=== PATIENT | female | born 1965 | race Caucasian/White ===

== ENCOUNTER 2022-11-26 14:34 | Outpatient (CLI) | payer MEDICAID, SELFPAY ==
--- NOTE | 2022-11-26 14:47 | MM_ITS ---
WS: [id number] BILATERAL 3D TOMOSYNTHESIS DIGITAL SCREENING MAMMOGRAPHY WITH CAD CLINICAL INFORMATION: SCREENING HISTORY: Screening mammogram. No current complaints. COMPARISON: None. TECHNIQUE: Bilateral CC and MLO views. FINDINGS: The breasts are composed of heterogeneous fibroglandular density tissue, which can limit the detectio n of small underlying mass lesions. No suspicious mass, asymmetry, calcifications, or architectural d istortion. No evidence of malignancy. Punctate and lucent centered calcifications. MM/[place] [id number] IMPRESSION: BI-RADS: 2-Benign FOLLOW UP: 1 Year Follow-up Recommend return to annual screening mammography.
== END 2022-11-26 14:35 | disposition home or self-care (01) ==
LOC: RAD 14:36
PROVIDERS: PCP Family Medicine; Visit Provider Family Medicine
DX: Z12.31 Encounter for screening mammogram for malignant neoplasm of breast (principal)
CPT/HCPCS: 77063; 77067

== ENCOUNTER → 2022-12-03 13:46 | Outpatient (BNVA) | payer MEDICAID, SELFPAY | PROVIDERS: PCP Family Medicine; Referring Provider Family Medicine; Visit Provider Orthopaedic Surgery | DX: M25.562 Pain in left knee (principal) | CPT/HCPCS: 73560; 73565 ==

== ENCOUNTER 2023-05-07 15:21 | Outpatient (CLI) | payer MEDICAID, SELFPAY ==
--- NOTE | 2023-05-07 | XRR_ITS ---
PROCEDURE INFORMATION: Exam: XR Left Shoulder Exam date and time: 05/07/2023 3:58 PM Age: 58 years old Clinical indication: Pain; Shoulder; Left; Additional info: Pain in left shoulder TECHNIQUE: Imaging protocol: Radiologic exam of the left shoulder. Views: 2 or more views. COMPARISON: No relevant prior studies available. FINDINGS: Bones/joints: Normal. Soft tissues: Normal. XR/XR shoulder LT min 2V* [id number] IMPRESSION: No acute findings.
== END 2023-05-07 15:22 | disposition home or self-care (01) ==
PROVIDERS: PCP Family Medicine; Visit Provider Family Medicine
DX: M25.512 Pain in left shoulder (principal)
CPT/HCPCS: 73030

== ENCOUNTER 2023-05-22 13:45 | Outpatient (CLI) | payer MEDICAID, SELFPAY ==
--- NOTE | 2023-05-22 13:54 | MR_ITS ---
WS: [id number] MRI LEFT SHOULDER HISTORY: PAIN IN LEFT SHOULDER COMPARISON: Shoulder radiograph 05/07/2023 TECHNIQUE: Multiplanar sequences of the shoulder joint are submitted. Mild AC joint arthritis. AC joint is narrowed. Small hypertrophic AC osteophytes. There is a small co mplex fluid collection in the subacromial bursa. There may be a few small loose bodies within this co llection. Additional smaller subdeltoid bursal distention. Mild subacromial impingement. Normal appea lupillo of the biceps tendon. No os acromion. Very small insertion site tear of the supraspinatus tendon. There is additional mild tendinopathy. Th ere is no atrophy or fatty replacement of the rotator cuff muscles. Mild increased T2 signal in the c oracohumeral ligament. Normal glenohumeral joint space narrowing. No labral tear. IMPRESSION: 1. Very small subacromial bursitis with tiny loose bodies. 2. Small insertion site tear supraspinatus tendon with additional mild tendinopathy. 3. Mild AC joint arthritis. 4. Mild subacromial impingement. 5. Mild increased T2 signal in the coracohumeral ligament.
== END 2023-05-22 13:46 | disposition home or self-care (01) ==
PROVIDERS: PCP Family Medicine; Visit Provider Family Medicine
DX: M25.512 Pain in left shoulder (principal); M75.52 Bursitis of left shoulder; S46.912A Strain of unspecified muscle, fascia and tendon at shoulder and upper arm level, left arm, initial encounter; X58.XXXA Exposure to other specified factors, initial encounter; M19.012 Primary osteoarthritis, left shoulder; M25.812 Other specified joint disorders, left shoulder
CPT/HCPCS: 73221

== ENCOUNTER → 2023-06-24 13:36 | Outpatient (BNVA) | payer MEDICAID, SELFPAY | PROVIDERS: PCP Family Medicine; Referring Provider Family Medicine; Visit Provider Specialist | DX: M75.82 Other shoulder lesions, left shoulder | CPT/HCPCS: 73030 ==

== ENCOUNTER 2023-07-28 14:35 | Outpatient (CLI) | payer MEDICAID, SELFPAY ==
--- NOTE | 2023-07-28 14:40 | US_ITS ---
WS: [id number] US transvaginal [id number] HISTORY: Postmenopausal vaginal bleeding COMPARISON: None available. Uterus: 8.6 cm x 5.7 cm x 5.0 cm. Uterus is normal size but very heterogeneous. Lobulated contour of the uterus with areas of decreased echogenicity consistent with fibroid uterus. Fibroids are ill-defined and difficult to measure. The largest measure approximately 1.3 x 1.3 cm along the anterior myometrium. There is also a probable fi broid abutting the posterior endometrium measuring 1.1 x 1.0 cm. Endometrium: 1.1 cm. Abnormal endometrium. There is a distended endometrial canal with low-level echo es. There is no increased vascularity but this is an abnormal endometrium and neoplasm needs to be ex cluded. This may be complex material such as blood or mucus distending the endometrial canal. Neither ovary is identified. No adnexal mass No free fluid in the cul-de-sac. IMPRESSION: 1. Abnormal endometrium. Endometrium is thickened and heterogeneous. Although there is no increased v ascularity the endometrium needs to be evaluated for possible neoplasm. Additional etiologies to cons ider are blood and mucus products. EXECUTIVE SOUS CHEF evaluation and biopsy is recommended. 2. Fibroid uterus. 3. Neither ovary identified.
== END 2023-07-28 14:36 | disposition home or self-care (01) ==
PROVIDERS: PCP Family Medicine; Visit Provider Family Medicine
DX: N95.0 Postmenopausal bleeding (principal); R93.89 Abnormal findings on diagnostic imaging of other specified body structures; D25.9 Leiomyoma of uterus, unspecified
CPT/HCPCS: 76830

== ENCOUNTER → 2023-08-13 15:18 | Outpatient (BNVA) | payer MEDICAID, SELFPAY | PROVIDERS: PCP Family Medicine; Referring Provider Family Medicine; Visit Provider Nurse Practitioner Women's Health | DX: R93.89 Abnormal findings on diagnostic imaging of other specified body structures (principal) | CPT/HCPCS: 87624; 88305 ==

== ENCOUNTER 2023-09-24 10:58 | Day surgery (SDC) | payer MEDICAID, SELFPAY ==
[2023-09-24] VITALS (9 sets, daily range): BP systolic 132–150; BP diastolic 71–99; PULSE 56–80; RESP 14–20; TEMP 36.4–37.1; O2SAT 93–98
--- NOTE | 2023-09-24 00:01 | P.HP_ITS ---
Same Day Surgery H&P Indication for Procedure/HPI DATE OF PROCEDURE: September 24, 2023 CHIEF COMPLAINT/INDICATIONFOR SURGICAL PROCEDURE: postmenopausal bleeding PREOP DIAGNOSIS: postmenopausal bleeding PLANNED PROCEDURE: Operation Date: 09/24/23 12:40 Proposed Procedures p Hysteroscopy, endometrial sampling, possible endometrial polypectomy 46478,N9 5.0(Not Applicable) - Osmany Pineda MD s Poylpectomy(Not Applicable) - Osmany Pineda MD 58 y.o. no bleeding x 9 years began bleeding in June, has continued to bleed now scheduled for hysteroscopy, endometrial sampling, possible endometrial polypectomy Medications/Allergies* Home Medications Medication Instructions Recorded Confirmed Type estradiol 0.05 mg/24 hr semiweekly See Rx Instructions .Route .COMPLEX 09/23/23 09/23/23 History transdermal patch lurasidone 40 mg tablet (Latuda) 40 mg PO DAILY 09/23/23 09/23/23 History meloxicam 15 mg tablet 15 mg PO DAILY 09/23/23 09/23/23 History omeprazole 20 mg tablet,delayed 20 mg PO DAILY 09/23/23 09/23/23 History release progesterone micronized 100 mg 100 mg PO DAILY 09/23/23 09/23/23 History capsule quetiapine 25 mg tablet 25 mg PO BEDTIME 09/23/23 09/23/23 History Allergies/Adverse Reactions Allergy/AdvReac Type Severity Reaction Status Date / Time No Known Allergies Allergy Verified 09/07/23 10:20 Pertinent History/Comorbid Conditions* Family History (Updated 08/13/23 @ 08:18 by June Saini CMA) Denies family history of Colon cancer Ovarian cancer Diabetes Heart disease Breast cancer Hypertension Uterine cancer Thyroid disease Stroke Pertinent Exam Findings alert, oriented x 3, clear to auscultation bilaterally and regular rate & rhythm Pertinent Data Pap 08-13-23 NILM, negative HPV pelvic sono 07-28-23 uterus heterogeneous with fibroids endometrium 1.1 cm ovaries not seen Recommendations Surgery/Procedure today Coding Level of Care Code Acute Code for Chg Fwd Time Spent (min) 20
[2023-09-24] MEDS: sodium chloride 0.9% 1,000 ML 30 ML IV (11:23)
[2023-09-24] MEDS: scopolamine 1.5 Patch 1 PATCH TRANSDERMA (11:38)
[2023-09-24] MEDS: midazolam 1 mg/mL INJ 2 mL 2 MG IVP (11:39)
--- NOTE | 2023-09-24 12:05 | ANES.PREANE2 ---
Pre-Anesthetic Assessment Height/Weight: Height 1.63 m Weight 76.657 kg Temp Pulse Resp BP Pulse Ox O2 Del Method 97.5 F L 80 16 149/99 96 Room Air 09/24/23 11:01 09/24/23 11:01 09/24/23 11:01 09/24/23 11:01 09/24/23 11:01 09/24/23 11:14 Preop Diagnosis: postmenopausal bleeding Operation Date: 09/24/23 12:40 Proposed Procedures p Hysteroscopy, endometrial sampling, possible endometrial polypectomy 84998,N95.0(Not Applicable) - Osmany Pineda MD s Poylpectomy(Not Applicable) - Osmany Pineda MD Familial anesthetic complications: None Was Beta Zoey taken within 24 hours: N/A Was Clonidine taken within 24 hours: N/A Last intake: Intake Last Liquid Date 09/23/23 Last Liquid Time 23:30 Last Solid Date 09/23/23 Last Solid Time 21:00 Social Tobacco and No alcohol Exam alert, oriented x 3, clear to auscultation bilaterally and regular rate & rhythm Airway Mallampati: Class II Dentition: full GI Gastroesophageal Reflux Disease Anesthetic Plan ASA status: 2 Anesthesia: MAC Risk of > 500 ml blood loss (7ml/kg in children): No Medications/Allergies Home Medications Medication Instructions Recorded Confirmed Last Taken Type estradiol 0.05 mg/24 hr semiweekly See Rx Instructions .Route .COMPLEX 09/23/23 09/23/23 09/23/23 History transdermal patch lurasidone 40 mg tablet (Latuda) 40 mg PO DAILY 09/23/23 09/23/23 09/23/23 History omeprazole 20 mg tablet,delayed 20 mg PO DAILY 09/23/23 09/23/23 09/23/23 History release progesterone micronized 100 mg 100 mg PO DAILY 09/23/23 09/23/23 09/23/23 History capsule quetiapine 25 mg tablet 25 mg PO BEDTIME 09/23/23 09/23/23 09/23/23 History Allergies Allergy/AdvReac Type Severity Reaction Status Date / Time No Known Allergies Allergy Verified 09/24/23 11:05 Current Medications Generic Name Dose Route Start Last Admin Trade Name Freq PRN Reason Stop Dose Admin Sodium Chloride 1,000 mls @ 30 mls/hr 09/24/23 11:15 09/24/23 11:23 Sodium Chloride 0.9% IV 09/25/23 11:14 30 mls/hr .Q24H DESIREE Administration Midazolam HCl 2 mg 09/24/23 11:01 09/24/23 11:39 Midazolam 1 Mg/Ml Inj 2 Ml IVP 2 mg Q5M PRN Administration Preop Anxiety PFSH Anesthesia Family History Denies family history of Colon cancer Ovarian cancer Diabetes Heart disease Breast cancer Hypertension Uterine cancer Thyroid disease Stroke Data Anesthesia Cardiac Studies: No Data to Display
--- NOTE | 2023-09-24 12:48 | W.PM.OPSUD ---
Surgery/Procedure H&P Update DATE OF PROCEDURE: September 24, 2023 DATE H&P PERFORMED: 09/23/23 H&P UPDATE INFORMATION: I have reviewed H&P completed within last 30 days, I have examined patient prior to procedure and No changes to prior documentation PREOP DIAGNOSIS: postmenopausal bleeding PLANNED PROCEDURE: Operation Date: 09/24/23 12:40 Proposed Procedures p Hysteroscopy, endometrial sampling, possible endometrial polypectomy 12417,N95.0(Not Applicable) - Osmany Pineda MD s Poylpectomy(Not Applicable) - Osmany Pineda MD
[2023-09-24] MEDS: fentaNYL 50 mcg/mL INJ 2mL IVP ×2 (13:54→14:03)
--- NOTE | 2023-09-24 14:10 | PM.OP ---
Operative Report Date of procedure: September 24, 2023 Pre-op diagnosis: abnormal uterine bleeding Post-op diagnosis: same Post-op findings: normal endometrial cavity No polyps / fibroids Minimal endometrial tissue Procedure done: hysteroscopy Curettage of uterus Implants: none Specimens removed/disposition: endometrial curettings Surgeon: Osmany Pineda MD Anesthesia: MAC Estimated blood loss (mL): 0 Complications: none Condition: stable Brief History: 58 y.o. with postmenopausal bleeding Procedure: Informed consent signed. Patient was taken to the operating room. Anesthesia was induced. Patient was placed in dorsolithotomy position, prepped and draped for hysteroscopy. A bivalve speculum was placed in the vagina. The anterior lip of the cervix was grasped with a sharp-toothed tenaculum. The cervix was serially dilated with Hegar dilators. . A hysteroscope was placed into the endometrial cavity. The endometrial cavity was seen to be normal. There were no polyps or fibroids. There was a minimal amount of endometrial tissue. The hysteroscope was then removed. Endometrial curettage was done with a sharp curette. Endometrial tissue was sent to pathology. The sharp-toothed tenaculum was removed. There was no bleeding from the endometrial cavity or cervix. The patient was then placed supine and awakened and taken to the PACU. Postop condition: stable EBL: none Sponge and instruments counts were normal x 2 Complications: none
--- NOTE | 2023-09-24 14:55 | ANE.PACU2 ---
Inpatient post-anesthesia follow up: Airway intact: Yes Vital signs: Temperature 98.7 F Pulse Rate 65 Respiratory Rate 16 Blood Pressure 135/73 Pulse Oximetry 94 Oxygen Delivery Me thod Room Air Oxygen Flow Rate Fraction of Inspir ed Oxygen Hydration adequate: Yes Nausea and vomiting: No Pain level: 1 Mental status: Baseline
== END 2023-09-24 14:53 | disposition home or self-care (01) ==
PROVIDERS: PCP Family Medicine; Visit Provider Obstetrics & Gynecology
PROC: 0UJD8ZZ Inspection of Uterus and Cervix, Via Natural or Artificial Opening Endoscopic (ICD-10-PCS; CPT 58555; principal; 2023-09-24 12:30)
DX: N93.9 Abnormal uterine and vaginal bleeding, unspecified (principal); K21.9 Gastro-esophageal reflux disease without esophagitis
CPT/HCPCS: 58558; 88305; J2250; J2405; J2704; J3010; J7030

== ENCOUNTER 2024-02-11 11:49 | Outpatient (CLI) | payer MEDICAID, SELFPAY ==
--- NOTE | 2024-02-11 11:51 | CT_ITS ---
WS: [id number] LDCT LUNG CANCER SCREENING TECHNIQUE: Noncontrast CT of the chest with coronal and sagittal reformatted images. CLINICAL INFORMATION: NICOTINE DEPENDENCE,CIGARETTES COMPARISON: None. DLP: 53.11 mGy.cm DIvol: Mean CTDIvol: 1.20 (mGy) All CT scans at [facility] use at least one of these dose optimization techniques: automat ed exposure control; mA and/or kV adjustment per patient size (includes targeted exams where dose is matched to clinical indication); or iterative reconstruction. FINDINGS: Lungs are well aerated. No acute pulmonary infiltrates. Pleural-based nodule RIGHT middle l obe measuring 6 mm.Tiny nodule in the lingula. Tiny subpleural nodule LEFT upper lobe. Small LEFT low er lobe nodule adjacent to the diaphragm measuring 5 mm Normal caliber thoracic aorta. Mild aortic calcification. No mediastinal or hilar lymphadenopathy. No axillary lymphadenopathy. Adrenal glands are normal. Normal noncontrast spleen. Small esophageal hernia. Mild thoracic kyphosis . CT/CT lung screening [id number] IMPRESSION: LUNG-RADS: 2-Benign Appearance or Behavior FOLLOW UP: 12 Month: Continue annual screening with LDCT
== END 2024-02-11 11:50 | disposition home or self-care (01) ==
LOC: RAD 11:49
PROVIDERS: PCP Family Medicine; Visit Provider Family Medicine
DX: Z12.2 Encounter for screening for malignant neoplasm of respiratory organs (principal)
CPT/HCPCS: 71271

== ENCOUNTER 2025-01-16 14:11 | Outpatient (CLI) | payer MEDICAID, SELFPAY ==
--- NOTE | 2025-01-16 14:20 | XR_ITS ---
WS: [id number] Exam: XR chest 2V* [id number] Date/Time of Exam: 01/16/2025 2:20 PM Reason For Exam: DYSPNEA Comparison CT lung screening 02/11/2024. Lungs are clear and fully inflated. Normal cardiomediastinal silhouette. No pleural effusions. Mild DJD of the T-spine and increased kyphosis. XR/XR chest 2V* [id number] IMPRESSION: 1. Negative chest.
== END 2025-01-16 14:12 | disposition home or self-care (01) ==
LOC: RAD 14:14
PROVIDERS: PCP Family Medicine; Visit Provider Family Medicine
DX: R06.09 Other forms of dyspnea (principal); M47.894 Other spondylosis, thoracic region; M40.294 Other kyphosis, thoracic region
CPT/HCPCS: 71046

== ENCOUNTER → 2025-02-01 07:53 | Day surgery (SDC) | payer MEDICAID, SELFPAY ==
[2025-02-01] MEDS: sodium chloride 0.9% 1,000 ML 30 ML IV (08:23)
[2025-02-01 08:24] VITALS: BP 110/77; PULSE 85; RESP 18; TEMP 36.3; O2SAT 99
--- NOTE | 2025-02-01 08:33 | ECG_ITS ---
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 Measurements Intervals [place] Rate: 71 P: 34 IA: 163 QRS: 34 QRSD: 84 T: 1 QT: 393 QTc: 428 Interpretive Statements SINUS RHYTHM MODERATE T-WAVE ABNORMALITY, CONSIDER ANTERIOR ISCHEMIA [-0.1+ mV T-WAVE IN V3/V4] No previous ECG available for comparison Electronically Signed On 02-01-2025 23:35:03 CDT by Carlos Mckeon M.D. [email or web address] [id number]
--- NOTE | 2025-02-01 08:36 | ANES.PREANE2 ---
Pre-Anesthetic Assessment Height/Weight: Height 5 ft 4 in Weight 174 lb Temp Pulse Resp BP Pulse Ox O2 Del Method 97.4 F L 85 18 110/77 99 Room Air 02/01/25 08:24 02/01/25 08:24 02/01/25 08:24 02/01/25 08:24 02/01/25 08:24 02/01/25 08:24 Preop Diagnosis: Hemorrhoids Operation Date: 02/01/25 09:20 Proposed Procedures p Rectum Exam Under Anesthesia 61495 59270 60270 K64.9(Not Applicable) - Carlos Manuel Fitch MD s POSSIBLE Hemorrhoid Banding(Not Applicable) - Carlos Manuel Fitch MD s POSSIBLE Hemorrhoidectomy(Not Applicable) - Carlos Manuel Fitch MD Was Beta Zoey taken within 24 hours: N/A Was Clonidine taken within 24 hours: N/A Last intake: Intake Last Liquid Date 02/01/25 Last Liquid Time 00:30 Last Solid Date 01/31/25 Last Solid Time 23:00 Social Tobacco and No alcohol Smokes marijuana as well Exam alert, oriented x 3 and regular rate & rhythm Decreased breath sounds bilaterally Airway Submandibular: within normal limits Cervical ROM: within normal limits Mallampati: Class II Dentition: full Anesthetic Plan ASA status: 2 Anesthesia: General Other: Patient states that she is slow to wake up from anesthesia NPO since yesterday evening History of GERD, controlled with omeprazole Patient states that she has been in the process of working up shortness of breath, exertion when she is doing any activity. States that she gets very short of breath when goes up a flight of stairs. States that they have done a chest x-ray that did not show anything. They are planning on doing a CT scan of her. Patient denies any cardiac issues. No lower extremity swelling. Denies any chest pain. Patient does smoke at least a half a pack of cigarettes a day and smokes even more marijuana daily. We will obtain an EKG prior to procedure Plan for general anesthesia Medications/Allergies Home Medications ?Medication ?Instructions ?Recorded ?Confirmed ?Last Taken ?Type lurasidone 40 mg tablet (Latuda) 40 mg PO DAILY 09/23/23 01/31/25 01/31/25 History omeprazole 20 mg tablet,delayed 20 mg PO DAILY 12/27/23 05/06/25 05/06/25 History release quetiapine 25 mg tablet 25 mg PO BEDTIME 09/23/23 01/31/25 01/31/25 History Allergies Allergy/AdvReac Type Severity Reaction Status Date / Time No Known Allergies Allergy Verified 01/31/25 14:12 Current Medications Generic Name Dose Route Start Last Admin Trade Name Michaelq PRN Reason Stop Dose Admin Sodium Chloride 1,000 mls @ 30 mls/hr 02/01/25 08:00 02/01/25 08:23 Sodium Chloride 0.9% IV 02/02/25 07:59 30 mls/hr .Q24H DESIREE Administration PFSH Anesthesia Family History Denies family history of Colon cancer Ovarian cancer Diabetes Heart disease Breast cancer Hypertension Uterine cancer Thyroid disease Stroke Social History (Updated 01/16/25 @ 13:[address]) Smoking and tobacco/nicotine status: current every day tobacco/nicotine user cigarettes Alcohol intake: current
--- NOTE | 2025-02-01 08:54 | PM.MISC ---
Miscellaneous Note Note: Patient complaining of SOB. Anesthesia reviewed EKG. Need cardiology workup prior to surgery. Will reschedule. Referring patient to cardiology
--- NOTE | 2025-02-01 08:57 | SUR.PREOP ---
Anesthesia requested EKG due to recent history of shortness of breath. Following EKG, anesthesia and surgeon decided pt needed cardiology consult. Case cancelled.
== END ==
PROVIDERS: PCP Family Medicine; Visit Provider Student in an Organized Health Care Education/Training Program
PROC: (CPT 46221; 2025-02-01 09:20)
DX: Z53.8 Procedure and treatment not carried out for other reasons (principal); R06.02 Shortness of breath
CPT/HCPCS: 93005; J2250; J2704; J3010; J7030

== ENCOUNTER 2025-02-03 19:22 | Emergency (ER) | payer MEDICAID, SELFPAY ==
--- NOTE | 2025-02-03 19:23 | XRR_ITS ---
PROCEDURE INFORMATION: Exam: XR Chest Exam date and time: 02/03/2025 7:35 PM Age: 60 years old Clinical indication: Chest pressure; Chest pain; SOB x 2 weeks TECHNIQUE: Imaging protocol: Radiologic exam of the chest. Views: 1 view. COMPARISON: CR XR chest 2V* [id number] 01/16/2025 2:24 PM FINDINGS: Lungs: Unremarkable. No consolidation. Pleural spaces: Unremarkable. No pleural effusion. No pneumothorax. Heart/Mediastinum: Unremarkable. No cardiomegaly. Bones/joints: Unremarkable. XR/XR chest 1V portable [id number] IMPRESSION: No acute findings.
--- NOTE | 2025-02-03 19:26 | ECG_ITS ---
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1965 Requested By: Gio Vernon Order Number: [id number] Reading MD: NEHAL DAN Measurements Intervals [place] Rate: 101 P: 68 [place]: 146 QRS: 88 QRSD: 82 T: 0 QT: 324 QTc: 420 Interpretive Statements SINUS TACHYCARDIA NONSPECIFIC T-WAVE ABNORMALITY ABNORMAL RHYTHM ECG Compared to ECG 02/01/2025 08:42:31 Sinus rhythm no longer present Possible ischemia no longer present T-wave abnormality still present Electronically Signed On 02-04-2025 16:20:40 CDT by NEHAL DAN [email or web address] [id number]
[2025-02-03 19:27] VITALS: BP 144/82; PULSE 102; RESP 16; TEMP 36.8; O2SAT 99; BMI 29.5
[2025-02-03 19:30] VITALS: BP 124/76; PULSE 79; RESP 17; O2SAT 97
[2025-02-03 19:35] LABS: Basophils # 0.1 10^3/uL (0.0-0.1); Eosinophils # 0.6 10^3/uL (0.0-0.8); Hematocrit 34.8 % (36-47); Lymphocytes # 3.1 10^3/uL (0.8-4.8); Lymphocytes % 26.8 %; Mean Corpuscular HGB Conc 30.2 g/dL (30-55); Mean Corpuscular Hemoglobin 25.1 pg (27-33); Mean Corpuscular Volume 83.3 fl (85-98); Mean Platelet Volume 8.8 fL (7.4-10.4); Monocytes # 0.8 10^3/uL (0.2-0.9); Monocytes % 6.8 %; Neutrophils # 6.92 10^3/uL (1.8-7.7); Neutrophils % 60.1 %; Nucleated Red Blood Cells % 0 %; Platelet Count 458 10^3/cmm (157-399); Red Blood Count 4.18 10^6/uL (3.85-5.65); Red Cell Distribution Width 13.9 % (12.1-15.1); White Blood Count 11.55 10^3/uL (3.29-11.43)
--- NOTE | 2025-02-03 19:35 | CTR_ITS ---
PROCEDURE INFORMATION: Exam: CTA Chest With Contrast Exam date and time: 02/03/2025 7:59 PM Age: 60 years old Clinical indication: Shortness of breath; Chest pressure; C/O chest pain that started earlier today. Also says she has been having SOB for the last few weeks. ; Additional info: Cp TECHNIQUE: Imaging protocol: Computed tomographic angiography of the chest with contrast. Exam focused on the arteries. 3D rendering (Not supervised by radiologist): MIP and/or 3D reconstructed images were created by the technologist. Radiation optimization: All CT scans at this facility use at least one of these dose optimization techniques: automated exposure control; mA and/or kV adjustment per patient size (includes targeted exams where dose is matched to clinical indication); or iterative reconstruction. Contrast material: OMNI 350; Contrast volume: 56 ml; Contrast route: INTRAVENOUS (IV); COMPARISON: CT lung screening [id number] 02/11/2024 12:02 PM RADIATION DOSE METRICS: Total DLP (mGy-cm): 348.88 FINDINGS: Pulmonary arteries: Normal. No pulmonary emboli. Aorta: Unremarkable. No aortic aneurysm. No aortic dissection. Lungs: Stable appearance of a couple of nodules noted in the left lung base measuring up to 5 mm in size. No consolidation. Pleural spaces: Unremarkable. No pneumothorax. No pleural effusion. Heart: Unremarkable. No cardiomegaly. No pericardial effusion. Lymph nodes: Unremarkable. No enlarged lymph nodes. Bones/joints: Unremarkable. No acute fracture. Soft tissues: Unremarkable. CT/CT angio chest PE protcl [id number] IMPRESSION: No acute findings.
--- NOTE | 2025-02-03 19:36 | ED_ITS ---
HPI - Chest Pain 2 General: Chief Complaint: Chest Pain Stated Complaint: CP Sob Time Seen by Provider: 02/03/25 19:32 Source: patient Mode of arrival: ambulatory Limitations: no limitations History of Present Illness: 60-year-old female states that throughou t the day today she has had intermittent very sharp chest pains states it started this morning at 8 AM states the random lasts for seconds and then resolve denies any pain currently states she also has had some shortness of breath over the last 2 weeks she denies any pain or dyspnea currently she denies any fever. Associated symptoms: Deny abdominal pain, dyspnea, fever(s), nausea or vomiting Related Data Home Medications ?Medication ?Instructions ?Recorded ?Confirmed lurasidone 40 mg tablet (Latuda) 40 mg PO DAILY 01/31/25 omeprazole 20 mg tablet,delayed 20 mg PO DAILY 3 01/31/25 release quetiapine 25 mg tablet 25 mg PO BEDTIME 09/23/23 Allergies Allergy/AdvReac Type Severity Reaction Status Date / Time No Known Allergies Allergy Verified 01/31/25 14:12 Review of Systems 2 Const: Denies: fever(s), chills, body aches or change in appetite ENMT: Denies: throat pain or dental pain Card: Reports: chest pain Resp: Denies: dyspnea GI: Denies: abdominal pain, nausea, vomiting or diarrhea Musc: Denies: neck pain or back pain Skin/Breast: Denies: rash Neuro: Denies: headache(s) PFSH ED 2 PFSH: Family History Denies family history of Colon cancer Ovarian cancer Diabetes Heart disease Breast cancer Hypertension Uterine cancer Thyroid disease Stroke Social History (Updated 01/16/25 @ 13:53 by ADRIANA Hickman) Smoking and tobacco/nicotine status: current every day tobacco/nicotine user cigarettes Alcohol intake: current Physical Exam 2 Const: COMMON NORMALS: patient oriented x3 HENMT: COMMON NORMALS: normocephalic and atraumatic HEAD & SCALP: n ormocephalic and atraumatic Eye: COMMON NORMALS: conjunctivae normal CONJUNCTIVA: Yes conjunctivae normal Neck/C-Spine: COMMON NORMALS: full ROM and supple Chest: COMMONS NORMALS: normal inspection of the chest and normal palpation of entire chest wall Resp: COMMON NORMALS: normal respiratory effort, No retractions, No use of accessory muscles and clear to auscultation bilaterally AUSCULTATION: clear to auscultation bilaterally Cardio: COMMON NORMALS: regular rate, regular rhythm and No murmurs present (Cardio) RATE: regular rate RHYTHM: regular rhythm Extremity: COMMON NORMALS: normal to inspection and full ROM Neuro: COMMON NORMALS: patient oriented x3, moves all extremities and no focal motor deficits Psych: COMMON NORMALS: mental status grossly normal, Normal thought process present and cooperative THOUGHT PROCESS: Normal thought process present Skin: COMMON NORMALS: no rashes or lesions noted and no wounds GENERAL SKIN EXAM: no rashes or lesions noted Course 2 Vital Signs: Vital signs: Vital Signs Temperature 98.3 F 02/03/25 19:27 Pulse Rate 79 02/03/25 19:30 Respiratory Rate 17 02/03/25 19:30 Blood Pressure 124/76 02/03/25 19:30 Pulse Oximetry 97 02/03/25 19:30 Oxygen Delivery Me thod Room Air 02/03/25 19:27 MDM - Chest Pain Medical Decision Making Patient presents for chest pain is atypical in nature initial repeat troponins are negative CTA was negative as well she stable for discharge she has no signs of ACS follow-up with PCP return if worsening. Medical Records I reviewed the patient's medical records. Lab Data I reviewed the patient's lab results. 02/03/25 19:30 02/03/25 19:30 Radiology Impressions Chest X-Ray 02/03/25 19:23 IMPRESSION: No acute findings. Chest CTA 02/03/25 19:35 IMPRESSION: No acute findings. Laboratory Results WBC 11.55 10^3/uL (3.29-11.43) H 02/03/25 19:30 RBC 4.18 10^6/uL (3.85-5.65) 02/03/25 19:30 Hgb 10.50 g/dL (11.27-16.99) L 02/03/25 19:30 Hct 34.8 % (36-47) L 02/03/25 19:30 MCV 83.3 fl (85-98) L 02/03/25 19:30 MCH 25.1 pg (27-33) L 02/03/25 19:30 MCHC 30.2 g/dL (30-55) 02/03/25 19: RDW 13.9 % (12.1-15.1) 02/03/25 19: Plt Count 458 10^3/cmm (157-399) H 02/03/25 19:30 MPV 8.8 fL (7.4-10.4) 02/03/25 19: Neut % (Auto) 60.1 % 02/03/25 19: Lymph % (Auto) 26.8 % 02/03/25 19:30 [place] % (Auto) 6.8 % 02/03/25 19:30 Eos % (Auto) 5.0 % 02/03/25: Baso % (Auto) 1.0 % 02/03/25: Neut # (Auto) 6.92 10^3/uL (1.8-7.7) 02/03/25 19: Lymph # (Auto) 3.1 10^3/uL (0.8-4.8) 02/03/25 19: [place] # (Auto) 0.8 10^3/uL (0.2-0.9) 02/03/25 19:30 Eos # (Auto) 0.6 10^3/uL (0.0-0.8) 02/03/25: Baso # (Auto) 0.1 10^3/uL (0.0-0.1) 02/03/25: Nucleated RBC % (auto) 0 % 02/03/25: Nucleated RBCs # 0.0 /100WBC 02/03/25 19: Sodium 139 mmol/L (136-145) 02/03/25 19: Potassium 4.2 mmol/L (3.5-5.1) 02/03/25: Chloride 103 mmol/L (98-107) 02/03/25: Carbon Dioxide 22 mmol/L (22-29) 02/03/25:30 Anion Gap 18.2 (5-19) 02/03/25:30 BUN 17 mg/dL (6-20) 02/03/25: Creatinine 1.1 mg/dL (0.5-0.9) H 05/09/25 19:30 GFR Calculation 50.8 mL/min (90-130) L 02/03/25 19:30 Glucose 108 mg/dL (65-115) 02/03/25 19:30 Calculated Osmolality 290 mOsm/kg (285-295) 02/03/25 19:30 Calcium 9.5 mg/dL (8.5-10.5) 02/03/25 19:30 Total Bilirubin 0.2 mg/dL (0.15-1.2) 02/03/25 19:30 AST 14 U/L (0-32) 02/03/25 19:30 ALT 13 U/L (0-33) 02/03/25 19:30 Alkaline Phosphatase 63 U/L (35-105) 02/03/25 19:30 Troponin T Baseline < 6 ng/L (0-10) 02/03/25 19:30 Troponin T 120 Minute < 6.0 ng/L (0-10) 02/03/25 21:16 Delta Troponin T 0 ABS# (0-10) 02/03/25 21:16 NT-Pro-B Natriuret Pep 55 pg/mL (0-125) 02/03/25 19:30 Total Protein 6.7 g/dL (6.6-8.7) 02/03/25 19:30 Albumin 4.5 g/dL (3.5-5.2) 02/03/25 19:30 Globulin 2.2 g/dL (1.3-4.6) 02/03/25 19:30 All radiology interpretation(s) finalized by discharge EKG Data EKG 1: I personally reviewed and interpreted this EKG as follows: EKG interpretation date: 02/03/25 EKG interpretation time: 19:23 Interpretation: sinus tach hr [address] elevation qrs 82 qtc 382 EKG 2: I personally reviewed and interpreted this EKG as follows: EKG interpretation date: 02/03/25 EKG interpretation time: 21:38 Interpretation: nsr hr [address] elevation qrs 82 qtc 406 Discharge Plan Discharge Patient Disposition: Home Clinical Impression: Chest pain Condition: Stable Prescriptions: No Action quetiapine 25 mg tablet 25 mg PO BEDTIME omeprazole 20 mg tablet,delayed release (DR/EC) 20 mg PO DAILY lurasidone [Latuda] 40 mg tablet 40 mg PO DAILY Discharge Orders: Discharge ED (Routine); Ordered 02/03/25 Ordered By: Gio Vernon Referrals: Atif Barraza MD [Primary Care Provider, [facility]] Discharge Diet: Advance as tolerated Discharge Activity: Resume usual activity Patient Instructions: Chest Pain (ED) Print Language: Turkmen Coding Level of Care Code ED 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
[2025-02-03 19:53] LABS: Troponin(5th) Baseline < 6 ng/L (0-10)
[2025-02-03 20:00] VITALS: BP 135/81; PULSE 83; RESP 19; O2SAT 100
[2025-02-03] MEDS: iohexol 350 mg/mL 500 mL Btl (per mL) IV (20:02)
[2025-02-03 20:09] LABS: Alanine Aminotransferase 13 U/L (0-33); Albumin Level 4.5 g/dL (3.5-5.2); Alkaline Phosphatase 63 U/L (35-105); Anion Gap 18.2 (5-19); Aspartate Amino Transferase 14 U/L (0-32); Blood Urea Nitrogen 17 mg/dL (6-20); Calcium 9.5 mg/dL (8.5-10.5); Carbon Dioxide 22 mmol/L (22-29); Chloride 103 mmol/L (98-107); Globulin 2.2 g/dL (1.3-4.6); Glomerular Filtration Rate 50.8 mL/min (90-130); Glucose 108 mg/dL (65-115); NT Pro B Type Natriuretic Pept 55 pg/mL (0-125); Osmolality Calculated 290 mOsm/kg (285-295); Potassium 4.2 mmol/L (3.5-5.1); Sodium 139 mmol/L (136-145); Total Bilirubin 0.2 mg/dL (0.15-1.2); Total Protein 6.7 g/dL (6.6-8.7)
--- NOTE | 2025-02-03 21:23 | ECG_ITS ---
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
[2025-02-03 21:30] VITALS: BP 109/72; PULSE 72; RESP 14; O2SAT 99
[2025-02-03 21:42] LABS: Troponin 5 2HR < 6.0 ng/L (0-10); Troponin 5 2HR Delta 0 ABS# (0-10)
[2025-02-03 22:37] VITALS: BP 140/75; PULSE 81; O2SAT 98
== END 2025-02-03 22:28 | disposition home or self-care (01) ==
PROVIDERS: Emergency Provider Emergency Medicine; PCP Family Medicine
DX: R07.9 Chest pain, unspecified (principal); F17.210 Nicotine dependence, cigarettes, uncomplicated
CPT/HCPCS: 36415; 71045; 71275; 80053; 83880; 84484; 85025; 93005; 99285

== ENCOUNTER 2025-04-19 14:28 | Outpatient (CLI) | payer MEDICAID, SELFPAY | END 2025-04-19 14:29 | disposition home or self-care (01) | PROVIDERS: PCP Family Medicine; Visit Provider Family Medicine | DX: R06.09 Other forms of dyspnea (principal) | CPT/HCPCS: 94010; 94729 ==

== ENCOUNTER 2025-04-24 16:13 | Outpatient (CLI) | payer MEDICAID, SELFPAY ==
--- NOTE | 2025-04-24 16:19 | CT_ITS ---
WS: [id number] LDCT LUNG CANCER SCREENING HISTORY: HISTORY OF TOBACCO USE TECHNIQUE: Axial imaging performed from the apices to 1 cm below the costophrenic angles. Coronal and sagittal reformats are submitted with axial MIP series. All CT scans at [facility] use at least one of these dose optimization techniques: automated exposure control; mA and/or kV adjustment per patient size (includes targeted exams where dose is matched to clinical indication); or iterative reconstruction. DLP: 56.81 mGy.cm DIvol: Mean CTDIvol: 1.20 (mGy) COMPARISON: 02/03/2025, 02/11/2024 Diagnostic quality: Satisfactory Lungs: Mild hyperexpansion. Stable pleural-based nodule measuring 5 mm in the RIGHT middle lobe. Subpleural nodule at the LEFT lung base is stable measuring 5 mm. No new or enlarging masses or nodules. No endobronchial lesions. Heart: Normal size heart with no pericardial effusion.. Other findings: 12 mm well circumscribed mass in the superior mediastinum on the RIGHT has been present on prior studies and not increasing in size. This may be a small lymph node. No additional abnormalities in the mediastinum. Small hiatal hernia. No adrenal mass. Mild increase in thoracic kyphosis. CT/CT lung screening [id number] IMPRESSION: LUNG-RADS: 2-Benign Appearance or Behavior FOLLOW UP: 12 Month: Continue annual screening with LDCT OTHER FINDINGS (S MODIFIER): None.
== END 2025-04-24 16:14 | disposition home or self-care (01) ==
LOC: RAD 16:14
PROVIDERS: PCP Family Medicine; Visit Provider Family Medicine
DX: Z12.2 Encounter for screening for malignant neoplasm of respiratory organs (principal); Z72.0 Tobacco use; J98.59 Other diseases of mediastinum, not elsewhere classified; R91.8 Other nonspecific abnormal finding of lung field
CPT/HCPCS: 71271

== ENCOUNTER → 2025-04-25 14:34 | Outpatient (BNVA) | payer MEDICAID, SELFPAY | PROVIDERS: PCP Family Medicine; Visit Provider Internal Medicine | DX: R07.9 Chest pain, unspecified (principal); R94.31 Abnormal electrocardiogram [ECG] [EKG] | CPT/HCPCS: 93005 ==

== ENCOUNTER 2025-09-05 14:25 | Outpatient (CLI) | payer MEDICAID, SELFPAY ==
--- NOTE | 2025-09-05 14:15 | USCV_ITS ---
Jacy Weiss Age: 60 Gender: F : 1965 Exam Date: 09/05/2025 14:54 Ordering Phys: Fer Sood M.D ([email or web address]) Technologist: CORDELL [place] [facility] [place] Worsening SoB BP: 128 / 68 HR: 70 Rhythm: Sinus Technical Quality: Adequate MEASUREMENTS (Male / Female) Normal Values 2D ECHO LV Diastolic Diameter PLAX 4.9 cm 4.2 - 5.9 / 3.9 - 5.3 cm IVS Diastolic Thickness 0.6 cm 0.6 - 1.0 / 0.6 - 0.9 cm IVS Systolic Thickness 0.6 cm LVPW Diastolic Thickness 0.8 cm 0.6 - 1.0 / 0.6 - 0.9 cm LVPW Systolic Thickness 0.7 cm LVOT Diameter 2.0 cm LV Ejection Fraction 2D Teich 18.6 % LV Ejection Fraction MOD 4C 65.4 % LV Ejection Fraction MOD 2C 56.2 % LV Ejection Fraction 2C AL 56.8 % LA Diameter 2.4 cm RA Systolic Volume 4C AL 24.8 ml RA Systolic Volume 4C MOD 24.2 ml LA Sys Volume AL 36.7 cm cubed LA Sys Volume Index AL 20.2 cm cubed/m squared Aorta at Sinotubular Diameter 2.2 cm IVC Diameter 1.2 cm M-MODE LA Ao Ratio MM 1.2 AV Cusp Separation MM 1.9 cm DOPPLER AV Peak Velocity 128.0 cm/s LVOT Peak Velocity 99.0 cm/s AV Area Cont Eq vti 2.8 cm squared AV Area Cont Eq pk 2.4 cm squared MV Peak Velocity 91.0 cm/s MV Area PHT 4.6 cm squared Mitral E to A Ratio 0.8 TR Peak Velocity 79.0 cm/s TR Peak Gradient 2.5 mmHg TV Peak E Velocity 63.0 cm/s PV Peak Velocity 95.0 cm/s FINDINGS Left Ventricle Normal left ventricular size, systolic function and wall thickness, with no regional wall motion abnormalities. Left ventricular ejection fraction is estimated at 60 %. Grade I/IV diastolic dysfunction (abnormal relaxation filling pattern), normal to mildly elevated filling pressures. Right Ventricle Normal right ventricular size and systolic function. Right Atrium Normal right atrial size. Left Atrium Normal left atrial size. IA Septum Normal appearance of the interatrial septum. Mitral Valve Normal mitral valve structure. No mitral valve stenosis or regurgitation. Aortic Valve Normal aortic valve structure. No aortic valve stenosis or regurgitation. Tricuspid Valve Normal tricuspid valve structure. No tricuspid valve stenosis or regurgitation. Normal pulmonary pressure. Pulmonic Valve Normal pulmonic valve structure. No pulmonic valve stenosis or regurgitation. Pericardium No pericardial effusion. Aorta Normal diameter of the aortic root and ascending thoracic aorta. IVC Normal IVC diameter. CONCLUSIONS Normal left ventricular size, systolic function and wall thickness, with no regional wall motion abnormalities. Left ventricular ejection fraction is estimated at 60 %. Grade I/IV diastolic dysfunction (abnormal relaxation filling pattern), normal to mildly elevated filling pressures. No significant valvular abnormalities. There is no pericardial effusion. Right atrial pressure is around 5 mm of mercury. Gaby Perez MD (Electronically Signed) Final Date: 19 September 2025 17:05 S
== END 2025-09-05 14:26 | disposition home or self-care (01) ==
LOC: RAD 14:28
PROVIDERS: PCP Family Medicine; Visit Provider Internal Medicine
DX: R06.02 Shortness of breath (principal); R06.09 Other forms of dyspnea; R93.1 Abnormal findings on diagnostic imaging of heart and coronary circulation
CPT/HCPCS: 93306